=== PATIENT | female | born 1965 | race Caucasian/White ===

== ENCOUNTER 2016-10-29 10:27 | Emergency (ER) | payer OTHER ==
[~2016-10-29] VITALS: Ht 152.4 cm; Wt 75.7 kg
[2016-10-29] MEDS ORDERED: BENAZEPRIL HCL10 MG ORAL (10:40)
[2016-10-29] MEDS ORDERED: METFORMIN HCL500 M1 ORAL (10:40)
[2016-10-29 10:42] VITALS: BP 128/80
--- NOTE | 2016-10-29 10:54 | Emergency Room Report ---
History of Present Illness General Chief Complaint: General Complaint Source: Patient Present Illness HPI Patient has recently been started on benazapril After she changed physicians About 3 days ago she began feeling swelling to the right side of her lip And presents for further eval Denies any shortness of breath denies any chest pain denies any back or flank pain Denies any pain or itching sensation Denies any difficulty swallowing or breathing Allergies: Coded Allergies: ARB-ANGIOTENSIN RECEPTOR ANTAGONIST (Verified Allergy, Unknown, 10/29/16) Patient History Past Medical History: see triage record Pertinent Family History: none Last Menstrual Period: 06/23/16 Now: No Reviewed Nursing Documentation: PMH: Agreed, PSxH: Agreed Nursing Documentation-PMH Past Medical History: No History, Except For Hx Hypertension: Yes Hx Diabetes: Yes Review of Systems All Other Systems: negative except mentioned in HPI Physical Exam Vital Signs Date Time Temp Pulse Resp B/P Pulse Ox O2 Delivery O2 Flow Rate FiO2 10/29/16 10:31 99.0 66 16 128/80 100 Room Air Sp02 EP Interpretation: reviewed, normal General Appearance: well appearing, no apparent distress Head: normocephalic, atraumatic Eyes: bilateral eye EOMI, bilateral eye PERRL ENT: hearing grossly normal, normal pharynx, TMs + canals normal, uvula midline , other - Angioedema type swelling involving the right upper lip area, there is also evidence of gingivitis and gingival erythema and irritation. Airway is patent no stridor Neck: full range of motion, supple, no meningismus, no bony tend Respiratory: lungs clear, normal breath sounds, no rhonchi, no respiratory distress, no retraction, no accessory muscle use Cardiovascular #1: normal peripheral pulses, regular rate, rhythm, no edema, no gallop, no JVD, no murmur Gastrointestinal: normal bowel sounds, non tender, soft, no mass, no organomegaly, non-distended, no guarding, no hernia, no pulsatile mass, no rebound Musculoskeletal: normal inspection Neurologic: oriented x3, responsive, millinery copyist III-XII nml as tested, motor strength/ tone normal, sensory intact Psychiatric: mood/affect normal Skin: normal color, no rash, warm/dry, palpation normal Lymphatic: normal inspection, no adenopathy Medical Decision Making Diagnostic Impression: Primary Impression: Allergic reaction Additional Impression: Angioedema ER Course Given the patient's appearance and evaluation appears the patient is likely having 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 Patient however does have gingival irritation and there is a component of possible infectious pathology however the patient has been stopped on her medication given her diabetic status was given one dose of steroids but will not be placed on this for prolonged term The areas also fairly well localized And the patient will have close outpatient followup Last Vital Signs Date Time Temp Pulse Resp B/P Pulse Ox O2 Delivery O2 Flow Rate FiO2 10/29/16 10:42 16 128/80 100 Room Air 10/29/16 10:31 99.0 66 Status: improved Disposition: HOME, SELF-CARE Condition: Improved Scripts Amlodipine Besylate* (AMLODIPINE BESYLATE*) 10 Mg Tablet 10 MG ORAL DAILY, #20 TAB Prov: VAHE EVANGELISTA D.O. 10/29/16 Ranitidine Hcl* (ZANTAC*) 150 Mg Tablet 150 MG ORAL TWICE A DAY, #30 TAB Prov: VAHE EVANGELISTA D.O. 10/29/16 Diphenhydramine Hcl* (BENADRYL*) 25 Mg Capsule 25 MG ORAL Q6H Y for Itching, #20 CAP Prov: VAHE EVANGELISTA D.O. 10/29/16 Additional Instructions: Patient is provided with the discharge instructions notified to follow up with primary doctor in the next 2-3 days otherwise return to the er with any worsening symptoms. Please note that this report is being documented using 360T technology. This can lead to erroneous entry secondary to incorrect interpretation by the dictating instrument. VAHE EVANGELISTA D.O. Oct 29, 2016 10:54
[2016-10-29] MEDS ORDERED: PredniSONE 20mg tab ORAL ONE (11:00)
[2016-10-29] MEDS ORDERED: RANITIDINE HCL150 MG ORAL (11:32)
[2016-10-29] MEDS ORDERED: AMLODIPINE BESY10 MG ORAL (11:32)
[2016-10-29] MEDS ORDERED: BENADRYL25 MG ORAL (11:32)
[2016-10-29 11:37] VITALS: BP 121/75
== END 2016-10-29 11:52 | disposition home or self-care (01) ==
LOC: EMR 11:27
DX: T78.40XA Allergy, unspecified, initial encounter (principal); X58.XXXA Exposure to other specified factors, initial encounter; R60.0 Localized edema; I10 Essential (primary) hypertension; E11.9 Type 2 diabetes mellitus without complications
CPT/HCPCS: 99284